=== PATIENT | female | born 1975 | race Caucasian/White ===

== ENCOUNTER 2020-03-03 09:48 | Emergency (ER) | payer OTHER ==
[~2020-03-03] VITALS: Ht 162.6 cm; Wt 74.8 kg
[2020-03-03 09:55] VITALS: Ht 162.6 cm; Wt 74.8 kg
[2020-03-03 10:57] VITALS: BP 125/71
== END 2020-03-03 10:57 | disposition home or self-care (01) ==
LOC: ED 09:48
DX: N39.0 Urinary tract infection, site not specified (principal)